=== PATIENT | female | born 1945 | race Caucasian/White ===

== ENCOUNTER → 2022-09-02 | Day surgery (SDC) | payer MEDICARE ==
[2022-08-30 13:12] VITALS: BMI 20.4
[~2022-09-02] MED LIST: Acetaminophen 325 MG TAB ONE; Acetaminophen 500 MG TAB ONE; Bupivacaine PF 0.5% 30 ML VIAL ONE; CEFAZOLIN 1 GM VIAL ONE; Dexamethasone 20 MG/5 ML VIAL ONE; Glycopyrrolate 0.2 MG/ML 5 ML SYRINGE ONE; Ketorolac Tromethamine 30 MG/ML VIAL ONE; Midazolam HCl 2 mg/2 ml Vial ONE; Neomycin-Polymyxin 1 ML AMP ONE; Ondansetron PF 4 MG/2 ML Vial ONE; PROPOFOL 20 ML ONE; ePHEDrine Sulfate 50 MG/10 ML VIAL ONE; fentaNYL 50 mcg/mL 1 mL Vial ONE
== END ==
LOC: CSHSDC 08:57
PROVIDERS: ATTEND Podiatrist Foot & Ankle Surgery
PROC: 0SGM0JZ Fusion of Right Metatarsal-Phalangeal Joint with Synthetic Substitute, Open Approach (ICD-10-PCS; principal; 2022-09-02)
DX: M20.11 Hallux valgus (acquired), right foot (principal); M19.90 Unspecified osteoarthritis, unspecified site; F32.A Depression, unspecified; G20 Parkinson's disease; Z87.891 Personal history of nicotine dependence; Z79.899 Other long term (current) drug therapy; Z79.891 Long term (current) use of opiate analgesic; Z88.2 Allergy status to sulfonamides; Z88.6 Allergy status to analgesic agent; Z88.8 Allergy status to other drugs, medicaments and biological substances
CPT/HCPCS: 28750; 73620; C1713 ×6; J3010; J0690; J1100; J1885; J2250; J2405; J2704; S0020